=== PATIENT | female | born 1975 | race Caucasian/White ===

== ENCOUNTER 2016-10-23 14:37 | Emergency (ER) | payer OTHER ==
[2016-10-23] MEDS ORDERED: DUONEB INH ONE ×2 (15:27→15:32)
== END 2016-10-23 16:42 | disposition home or self-care (01) ==
LOC: FASTR 14:37
DX: J20.8 Acute bronchitis due to other specified organisms (principal); J06.9 Acute upper respiratory infection, unspecified; J45.909 Unspecified asthma, uncomplicated; F17.210 Nicotine dependence, cigarettes, uncomplicated
CPT/HCPCS: 71020; 87804; 87880; 94640